=== PATIENT | female | born 1945 | race Caucasian/White ===

== ENCOUNTER → 2017-04-21 | Outpatient (CLI) | payer MEDICARE, OTHER ==
[~2017-04-21] MED LIST: ALN70T PO; ASP81CT PO; CALC-80 PO; CLOP75TA PO; DILT240C54 PO; LANS30CA PO; MULT1CAP27 PO; PNT40TEC PO; SIMV20TA3 PO; TRM50T PO; VNL75T PO
== END ==
LOC: CARD 11:51
PROVIDERS: ATTEND Nurse Practitioner Family
DX: R00.2 Palpitations (principal)
CPT/HCPCS: 93225; 93226

== ENCOUNTER 2017-07-22 07:52 | Day surgery (SDC) | payer MEDICARE, OTHER ==
[~2017-07-22] VITALS: Ht 152.4 cm; Wt 53.1 kg
[2017-07-22] MEDS ORDERED: LIDOCAINE 1% INJ 50 ML (XYLOCAINE) VIAL ONE (07:53)
[2017-07-22 08:08] VITALS: BP 159/89
--- NOTE | 2017-07-22 10:10 | Cardiac Procedure Note-CS/ASA ---
Pre-Procedure Note Pre-Op Procedure Note H&P Reviewed The H&P was reviewed, patient examined and no changes noted. Date H&P Reviewed: Jul 22, 2017 Time H&P Reviewed: 09:50 Conscious Sedation Pre-Proced Time Reviewed: 09:50 ASA Class: 2 Airway Mallampati Classification: ([place] appropriate class) I. II. III, IV Lungs Heart ASA score ASA 1: a normal healthy patient ASA 2: a patient with a mild systemic disease (mid diabetes, controlled hypertension, obesity ASA 3: a patient with a severe systemic disease that limits activity (angina , COPD, prior Myocardial infarction) ASA 4: a patient with an incapacitating disease that is a constant threat to life (CHF, renal failure) ASA 5: a moribund patient not expected to survive 24 hrs. (ruptured aneurysm) ASA 6: a declared brain patient whose organs are being harvested. For emergent operations, add the letter E after the classification Grade 2 Sedation Plan: Analgesia, Amnesia, Plan communicated to team members, Discussed options with patient/fam, Discussed risks with patient/fam Note The patient is an appropriate candidate to undergo the planned procedure, sedation, and anesthesia. The patient immediately re-assessed prior to indication. ETHEL RUSHING MD FACP FAC CCDS Jul 22, 2017 10:10
[2017-07-22 10:18] VITALS: BP 150/80
--- NOTE | 2017-07-22 14:39 | OPERATIVE REPORT ---
DATE OF SERVICE: 07/22/2017 PREOPERATIVE DIAGNOSIS: Palpitations. POSTOPERATIVE DIAGNOSIS: Palpitations. PROCEDURE: Implantable loop recorder implantation. The patient is a 71-year-old lady who has been experiencing palpitations that are infrequent. Implantable loop recorder implantation was carried out today to evaluate, diagnosis, and treat her palpitations appropriately. Informed consent was obtained. [facility] The left prepectoral area was prepared and draped in the usual sterile fashion. We used the [employer]te[employer] implantable loop recorder. We used the tools provided with the implantable loop recorder to make a small incision in the left prepectoral area at the level of the 4th intercostal space. The loop recorder was implanted in the subcutaneous space. The incision was closed using Dermabond. She tolerated the procedure well. Job ID: [id number] DocumentID: [id number] Dictated Date: 07/22/2017 09:52:08 Semiconductor Manufacturing Technician Date: 07/22/2017 14:38:55 Dictated By: ETHEL RUSHING MD, MA, FACP, FACC, MTDD
== END 2017-07-22 11:21 | disposition home or self-care (01) ==
LOC: CATH 07:52
PROVIDERS: ATTEND Internal Medicine Cardiovascular Disease
DX: R00.2 Palpitations (principal); I25.10 Atherosclerotic heart disease of native coronary artery without angina pectoris; I08.1 Rheumatic disorders of both mitral and tricuspid valves; I47.1 Supraventricular tachycardia; E78.5 Hyperlipidemia, unspecified; Z95.5 Presence of coronary angioplasty implant and graft; Z79.82 Long term (current) use of aspirin; Z79.899 Other long term (current) drug therapy
CPT/HCPCS: 33282

== ENCOUNTER 2017-11-25 21:22 | Outpatient (CLI) | payer MEDICARE, OTHER | END 2017-11-26 07:10 | disposition home or self-care (01) | LOC: SLEEP 21:22 | PROVIDERS: ATTEND Nurse Practitioner Family | DX: G47.33 Obstructive sleep apnea (adult) (pediatric) (principal); R68.3 Clubbing of fingers; G47.10 Hypersomnia, unspecified; I49.9 Cardiac arrhythmia, unspecified | CPT/HCPCS: 95810 ==

== ENCOUNTER → 2019-06-29 | Outpatient (CLI) | payer MEDICARE, OTHER | LOC: CARD 10:22 | PROVIDERS: ATTEND Internal Medicine Cardiovascular Disease | DX: I25.10 Atherosclerotic heart disease of native coronary artery without angina pectoris (principal); R06.09 Other forms of dyspnea; I08.1 Rheumatic disorders of both mitral and tricuspid valves | CPT/HCPCS: 93306 ==

== ENCOUNTER → 2019-07-06 | Outpatient (CLI) | payer MEDICARE, OTHER ==
[~2019-07-06] VITALS: Ht 152 cm; Wt 60.0 kg
[~2019-07-06] MED LIST changes: +REGADENOSON 0.4 MG/5 ML SYR (LEXISCAN) IV ONE
[2019-07-06] MEDS: CATHETER FLUSH 10 ML SYR IV PRN ×2 (11:26→13:21)
[2019-07-06 13:19] VITALS: BP 142/83
--- NOTE | 2019-07-06 18:47 | STRESS TEST ---
DATE OF SERVICE: 07/06/2019 RESTING AND POST REGADENOSON TECHNETIUM-99M TETROFOSMIN SPECT CT IMAGING ORDERING PHYSICIAN: Dr. Leonard. PRIMARY PHYSICIAN: Dr. Peña. CLINICAL DIAGNOSES: Coronary artery disease, shortness of breath. Baseline images were carried out after injection of 10.05 mCi of technetium-99m Tetrofosmin. This was followed by 0.4 mg regadenoson and 30 mCi of technetium-99m Tetrofosmin for stress imaging. The electrocardiogram showed sinus rhythm during the study and did not change significantly with regadenoson infusion. The patient tolerated the procedure well. Review of images at rest and following stress does not indicate any significant perfusion defects consistent with significant myocardial ischemia or infarction. Gated images show hyperdynamic left ventricular systolic function with ejection fraction of 85%. Left ventricular end diastolic volume is 27 mL. TID is absent (1). CONCLUSIONS: 1. No evidence of any significant myocardial ischemia or infarction study. 2. Hyperdynamic left ventricular systolic function with a calculated ejection fraction of 85%. 3. No regional wall motion abnormality. Job ID: [id number] DocumentID: [id number] Dictated Date: 07/06/2019 17:42:22 Gear Lapping Machine Operator Date: 07/06/2019 18:46:33 Dictated By: ETHEL LEONARD MD, MA, FACP, FACC,
== END ==
LOC: CARD 11:19
PROVIDERS: ATTEND Internal Medicine Cardiovascular Disease
DX: I25.10 Atherosclerotic heart disease of native coronary artery without angina pectoris (principal); R06.09 Other forms of dyspnea; I08.1 Rheumatic disorders of both mitral and tricuspid valves
CPT/HCPCS: 78452; 93017

== ENCOUNTER 2021-01-27 02:26 | Emergency (ER) | payer MEDICARE, OTHER ==
[~2021-01-27 02:26] MED LIST changes: -REGADENOSON 0.4 MG/5 ML SYR (LEXISCAN) IV ONE
[2021-01-27] MEDS ORDERED: MTP100TCR PO (03:14)
[2021-01-27] MEDS ORDERED: ATOR20TA66 PO (03:14)
[2021-01-27] MEDS ORDERED: OMEG1CAP24 PO (03:14)
--- NOTE | 2021-01-27 03:52 | ED General ---
General Chief Complaint: Rect Problems Stated Complaint: RECTAL BLEEDING Nursing Triage Note: Pt awake, alert, oriented, accompanied by adult son. Pt ambulated from waiting room to ER1 without difficulty. Reports one episode of rectal bleeding at 0130 this morning. States that she had a surgical procedure for hemorrhoids in [place] on 01/19/21. Pt restarted her plavix on 01/23/21. Airway intact. Respirations even et unlabored. Skin warm, dry, appropriate for ethnicity. Source of Information: Patient History of Present Illness Date Seen by Provider: Jan 27, 2021 Time Seen by Provider: 02:29 Initial Comments 75 yo female presents with her son to the ED with complaint of bleeding from hemorrhoidectomy site. She had a hemorrhoidectomy with Dr. Green done at [facility] on January 19 and restarted her Plavix recently. She went to the bathroom this morning after 2 and had bright red blood and clots. She just been going to urinate and had not been straining or having any hard stool. She does not have any nausea or vomiting. She has no burning with urination. She has no rectal pain. She was concerned that the stitch of the hemorrhoidectomy had come open. She denies feeling dizzy or lightheaded. Timing/Duration: 1/2 Hour Severity: Moderate Modifying Factors: improves with Other (Urination or defecation) Associated Systoms: No Chest Pain; Cough; No Diaphoresis, No Fever/Chills, No Headaches, No Loss of Appetite, No Malaise, No Nausea/Vomiting, No Rash, No Seizure, No Shortness of Air, No Syncope, No Weakness Allergies and Home Medications Allergies Coded Allergies: Penicillins (Verified Allergy, Unknown, 04/20/08) Sulfa (Sulfonamide Antibiotics) (Verified Allergy, Unknown, 04/20/08) Patient Home Medication List Home Medication List Reviewed: Yes Alendronate Sodium (Fosamax) 70 Mg Tab, 70 MG PO Th@06, (Reported) Entered as Reported by: JUNE MOREIRA on 06/11/11 0845 Aspirin (Aspirin 81 Mg Chew Tab) 81 Mg Chew, 81 MG PO DAILY, (Reported) Entered as Reported by: JUNE MOREIRA on 06/11/11 0845 Atorvastatin Calcium (Atorvastatin Calcium) 20 Mg Tablet, 20 MG PO DAILY, (Reported) Entered as Reported by: GALILEO MCCURDY on 01/27/21313 Last Action: New Order Calcium Carbonate/Vitamin D3 (Calcium 600 + D Caplet) 1 Each Tablet, 1 EACH PO BID, (Reported) Entered as Reported by: JUNE MOREIRA on 06/11/11844 Clopidogrel Bisulfate (Plavix 75 Mg) 75 Mg Tablet, 75 MG PO DAILY, (Reported) Entered as Reported by: VIPIN LARKIN on 06/12/11 102 Metoprolol Succinate (Metoprolol Succinate) 100 Mg Tab.er.24h, 100 MG PO BID, (Reported) Entered as Reported by: GALILEO MCCURDY on 01/27/21313 Last Action: New Order Multivitamins (Multivitamins) 1 Each Capsule, 1 EACH PO DAILY, (Reported) Entered as Reported by: JUNE MOREIRA on 06/11/11844 Enterprise-3 Fatty Acids/Fish Oil (Enterprise 3 Fish Oil Softgel) 1 Each Capsule.dr, 1 EACH PO DAILY, (Reported) Entered as Reported by: GALILEO MCCURDY on 01/27/21313 Last Action: New Order Pantoprazole Sod (Protonix Tab) 40 Mg Tab, 40 MG PO DAILY, (Reported) Entered as Reported by: VIPIN LARKIN on 06/12/11 102 Tramadol Hcl (Ultram) 50 Mg Tab, 50 MG PO PRN, (Reported) Entered as Reported by: JUNE MOREIRA on 06/11/11846 Venlafaxine Hcl (Effexor Tab) 75 Mg Tab, 1 EACH PO DAILY, (Reported) Entered as Reported by: JUNE MOREIRA on 06/11/11844 Discontinued Medications Diltiazem Hcl (Cartia Xt) 240 Mg Cap.sr.24h, 240 MG PO DAILY, (Reported) Discontinued Reason: No Longer Taking Entered as Reported by: JUNE MOREIRA on 06/11/11844 Last Action: Discontinued Simvastatin (Simvastatin) 20 Mg Tablet, 20 MG PO DAILY, (Reported) Discontinued Reason: New Order Entered as Reported by: JUNE MOREIRA on 06/11/11844 Last Action: Discontinued Review of Systems Review of Systems Constitutional: No chills, No dizziness, No fever EENTM: no symptoms reported Respiratory: cough (occasional) Cardiovascular: No chest pain Gastrointestinal: see HPI, heartburn Genitourinary: see HPI Musculoskeletal: no symptoms reported Skin: no symptoms reported Psychiatric/Neurological: No Symptoms Reported Hematologic/Lymphatic: Easy Bleeding, Easy Bruising Past Hxjjtuo-Zczgif-Bgztix Hx Patient Social History Tobacco Use?: No Use of E-Cig and/or Vaping dev: No Substance use?: No Alcohol Use?: No Pt feels they are or have been: No Immunizations Up To Date Influenza Vaccine Up-to-Date: Yes; Up-to-Date Past Medical History Surgery/Hospitalization HX: Hemorrhoidectomy 01/19/2021 Reproductive Disorders: No Gastroesophageal Reflux, Hiatal Hernia Physical Exam Vital Signs Vital Signs - First Documented 01/27/21 02:30 Temp 36.5 Pulse 73 Resp 18 B/P (MAP) 172/88 (116) Pulse Ox 96 O2 Delivery Room Air Capillary Refill : Less Than 3 Seconds Height, Weight, BMI Height: 5'0.00" Weight: 117lbs. 0.0oz. [id number]; 25.96 BMI Method: General Appearance: WD/WN, Anxious Respiratory: Chest Non Tender, Lungs Clear, Normal Breath Sounds Cardiovascular: Normal Peripheral Pulses Rectal: Hemorrhoids (9 o'clock position she has a hemorrhoid with linear lesion through it that is and oozing blood from the subcutaneous tissue that is exposed) Extremity: Normal Capillary Refill, No Pedal Edema Neurologic/Psychiatric: Alert, Oriented x3 Skin: Warm/Dry Progress/Results/Core Measures Suspected Sepsis SIRS Temperature: Pulse: 73 Respiratory Rate: 18 Blood Pressure 172 /88 Mean: 116 Results/Orders My Orders Orders - ANGELES HAYDEN MD Nursing Communication (Order) (01/27/21 03:42) Vital Signs/I&O 01/27/21 01/27/21 02:30 04:04 Temp 36.5 Pulse 73 70 Resp 18 18 B/P (MAP) 172/88 (116) 183/96 Pulse Ox 96 97 O2 Delivery Room Air Room Air Capillary Refill : Less Than 3 Seconds Blood Pressure Mean: 116 Progress Note #1: Progress Note Holding pressure was helping the bleeding slow down so it was not oozing so muc h. Left a Gauze roll in place to help hold direct pressure while I went to contact Dr. Green and look for Surgicel to help with clotting. Progress Note #2: Progress Note Unable to locate any Surgicel. SurgiFlow with Thrombin was available. When discussed with Dr. Green he recommended Putting a roll of gauze 4x4's with lubricant on them then covered with SurgiFlow since we do not have t he Surgicel. Place that against the area of bleeding and have patient try to hold and keep it in place for 24 hours or as long as she can. Hold her Plavix for the next 5 days. Follow a clear liquid diet for the next 24 to 36 hours so that if she did require surgery again it would be easier to give anesthesia. Call Dr. Green directly on his number for further problems and bleeding as he would need to make arrangements at [facility] or tried so the patient could come back for a surgical procedure to get the bleeding to stop. Discussed with the patient and her son about all the directions and discharge instructions. The were counseled on follow-up and return precautions. They had no further questions or concerns Departure Impression Primary Impression: Bleeding external hemorrhoids Additional Impression: Status post hemorrhoidectomy Disposition: 01 HOME, SELF-CARE Condition: Stable Departure-Patient Inst. Decision time for Depature: 03:47 Referrals: REANNA GREEN LISA A MD (PCP/Family) Primary Care Physician Patient Instructions: Hemorrhoidectomy (DC), Hemorrhoids ED Add. Discharge Instructions: Try to keep the gauze roll that has the clotting medicine on it in place against your rectum and hemorrhoidectomy site that was oozing blood as long as you can, up to 24 hours if possible. Follow a clear liquid diet for 24 hours [address] if you start having more bleeding and it is not stopping then when you call Dr. Green if he has to have you come to [place] or [place] so he can take you to the OR he can give you anesthesia medicine easier if you are following a clear liquid diet. HOLD your Plavix for another 5 days and check back with Dr Green before restarting the medicine. If you have continued bleeding and more problems/issues you can call Dr. Green directly at his number and see what he wants you to do. All discharge instructions reviewed with patient and/or family. Voiced understanding. ANGELES HAYDEN MD Jan 27, 2021 03:51
[2021-01-27 04:04] VITALS: BP 183/96
== END 2021-01-27 04:05 | disposition home or self-care (01) ==
LOC: EDUNIT# 02:26 → ER FS 02:30
DX: K64.4 Residual hemorrhoidal skin tags (principal); K21.9 Gastro-esophageal reflux disease without esophagitis; Z98.890 Other specified postprocedural states; Z79.899 Other long term (current) drug therapy; Z79.82 Long term (current) use of aspirin; Z79.01 Long term (current) use of anticoagulants
CPT/HCPCS: 99281

== ENCOUNTER → 2022-05-28 | Outpatient (CLI) | payer MEDICARE, OTHER ==
[~2022-05-28] MED LIST changes: +ATOR20TA66 PO; +CATHETER FLUSH 10 ML SYR IVP PRN; +MTP100TCR PO; +OMEG1CAP24 PO; +REGADENOSON 0.4 MG/5 ML SYR (LEXISCAN) IV ONE
[2022-05-28 09:44] VITALS: BP 168/96
--- NOTE | 2022-05-28 19:05 | STRESS TEST ---
DATE OF SERVICE: 05/28/2022 RESTING AND POST REGADENOSON TECHNETIUM-99M TETROFOSMIN SPECT CT IMAGING ORDERING PHYSICIAN: Liza Leonard M.D.; DENISE; MEERA; TALI; PRIMARY PHYSICIAN: Dr. Peña. CLINICAL DIAGNOSIS: Coronary artery disease. DESCRIPTION OF PROCEDURE: Baseline images were carried out after injection of 10.99 mCi of technetium-99m tetrofosmin. This was followed by 0.4 mg regadenoson and 31 mCi of technetium-99m tetrofosmin for stress imaging. The electrocardiogram showed sinus rhythm at baseline. It did not change significantly with the regadenoson infusion. The patient noted some shortness of breath, which resolved in a few minutes. Review of images at rest and following stress does not indicate any significant perfusion defect consistent with myocardial ischemia or infarction. Gated images show normal to hyperdynamic left ventricular systolic function. Left ventricular ejection fraction is calculated to be 81%. CONCLUSIONS: 1. No evidence of any significant myocardial ischemia or infarction throughout the study. 2. Normal to hyperdynamic left ventricular systolic function without regional wall motion abnormality and with an ejection fraction of 81%. Job ID: [id number] DocumentID: [id number] Dictated Date: 05/28/2022 14:30:42 Spinning Frame Changer Date: 05/28/2022 19:03:00 Dictated By: LIZA LEONARD MD; DENISE; MEERA; TALI;
== END ==
LOC: CARD 07:46
PROVIDERS: ATTEND Internal Medicine Cardiovascular Disease
DX: I25.10 Atherosclerotic heart disease of native coronary artery without angina pectoris (principal)
CPT/HCPCS: 78452; 93017; A9502

== ENCOUNTER → 2023-02-24 | Outpatient (CLI) | payer MEDICARE, OTHER ==
[~2023-02-24] MED LIST changes: -CATHETER FLUSH 10 ML SYR IVP PRN; -REGADENOSON 0.4 MG/5 ML SYR (LEXISCAN) IV ONE
== END ==
LOC: CARD 11:30
PROVIDERS: ATTEND Nurse Practitioner Family
DX: R06.09 Other forms of dyspnea (principal)
CPT/HCPCS: 93306